=== PATIENT | female | born 1985 | race Caucasian/White ===

== ENCOUNTER → 2017-01-20 | Outpatient (CLI) | payer OTHER | LOC: FIMAGING 10:47 | PROVIDERS: ATTEND Obstetrics & Gynecology | DX: Z03.79 Encounter for other suspected maternal and fetal conditions ruled out (principal); Z3A.19 19 weeks gestation of pregnancy ==

== ENCOUNTER → 2017-02-14 | Outpatient (CLI) | payer OTHER | LOC: FIMAGING 13:42 | PROVIDERS: ATTEND Obstetrics & Gynecology | DX: Z34.82 Encounter for supervision of other normal pregnancy, second trimester (principal); Z3A.23 23 weeks gestation of pregnancy ==

== ENCOUNTER 2017-06-13 10:15 | Inpatient (IN) | payer OTHER ==
[2017-06-13] MEDS ORDERED: LIDOCAINE 1% 300 MG/30 ML SDV ONE (10:32)
[2017-06-13] MEDS ORDERED: AMMONIA AROMATIC 1 EACH AMP IH ONE (10:32)
[2017-06-13] MEDS ORDERED: TERBUTALINE SULFATE 1 MG/ML VIAL ONE (10:32)
[2017-06-13] MEDS ORDERED: OLIVE OIL 118 ML BTL ONE (10:32)
[2017-06-13] MEDS ORDERED: MISOPROSTOL 200 MCG TAB ONE (10:33)
[2017-06-13] MEDS ORDERED: OXYTOCIN 10 UNIT/ML VIAL ONE (10:33)
[2017-06-13] MEDS ORDERED: LR 1,000 ML IV PRN (10:34)
[2017-06-13] MEDS ORDERED: AMPICILLIN SODIUM 2 GM in NS 100 ML IV ONE (10:34)
[2017-06-13] MEDS ORDERED: TERBUTALINE SULFATE 1 MG/ML VIAL IV PRN (10:34)
[2017-06-13] MEDS ORDERED: EPSOM SALT 454 GM TP PRN (10:34)
[2017-06-13] MEDS ORDERED: OLIVE OIL 118 ML BTL MISC PRN (10:34)
[2017-06-13] MEDS ORDERED: OXYTOCIN/RINGERS LACTATE 1,000 ML IV PRN (10:34)
[2017-06-13] MEDS ORDERED: SIMETHICONE 80 MG TAB CHEW PO PRN (11:34)
[2017-06-13] MEDS ORDERED: HYDROCODONE/APAP 5/325 TAB PO PRN (11:34)
[2017-06-13] MEDS ORDERED: ACETAMINOPHEN 325 MG TAB PO PRN (11:34)
[2017-06-13] MEDS ORDERED: HYDROCORTISONE 0.5% CREAM TP PRN (11:34)
[2017-06-13] MEDS ORDERED: DOCUSATE SODIUM 100 MG CAP PO PRN (11:34)
--- NOTE | 2017-06-13 11:39 | OBDEL ---
Info Type: Vaginal GBS+: Yes Antibiotic Used for + GBS: Ampicillin Number of Antibiotic Doses Given: 1 Indications for Delivery: Spontaneous Labor Vaginal Delivery - Labor and Delivery Onset of Contractions Date: 06/13/17 Onset of Contractions Time: 06:00 Onset of Contractions Type: Spontaneous Rupture of Membranes Date: 06/13/17 Rupture of Membranes Time: 10:50 Rupture of Membranes Type: Spontaneous Amniotic Fluid Color: Clear Dilation Complete Date: 06/13/17 Dilation Complete Time: 10:50 Placenta Delivery Date: 06/13/17 Placenta Delivery Time: 11:11 Total Hours of Labor: 5 Laceration: 1st Degree Repair: 3-0, Vicryl Vaginal Sponge Count Correct: Yes Vaginal Needle Count Correct: Yes Vaginal Sweep Performed: Yes EBL: 250 cc Delivery Events: Nuchal Cord ( x 2) Delivery Comment: Patient progressed quickly from 7cm on admission to delivery. She delivered in squatting position - baby's head delivered, a nuchal cord was noted and reduced , then baby delivered through another loose nuchal cord. Baby was handed to mom , and mother was then positioned on the labor bed. Cord clamped x 2 and cut after 2 minutes of delayed cord clamping. Delivery nurse was in attendance since delivery. Baby taken to the warmer. Cord blood obtained, placenta delivered intact and uterus massaged. A few clots cleared from the ELISE, and pitocin given IV 20U/1L. Good uterine tone, cervix and vaginal hartman intact. Small midline 1st degree repaired with a running locked stitch and hemostatic. Baby in stable and good condition. - Medications Labor Augmentation/Induction Methods Used: None Data [facility] Delivery Date: 06/13/17 Delivery Time: 11:03 PRISCA: 06/10/17 Gestational Age: 40 week(s) and 3 day(s) Sex of Infant: Female Score (1 Min): 7 Score (5 Min): 8 ICD10 Worksheet Patient Problems: Problems Problem Status Onset (spontaneous vaginal delivery) Acute - ICD10 Problem Qualifiers (1) (spontaneous vaginal delivery)
[2017-06-13 11:50] LABS: % IMMATURE GRANULYOCYTES 0.2 % (0.0-1.1); ABSOLUTE IMMATURE GRANULOCYTES 0.02 10^3/uL (0.00-0.10); ADD DIFF? NO; ADD MORPH? NO; ADD SCAN? NO; ATYPICAL LYMPHOCYTE FLAG 10 (0-99); FRAGMENT RBC FLAG 0 (0-99); HEMATOCRIT 43.4 % (38.0-47.0); HEMOGLOBIN 15.6 g/dL (12.6-16.3); LEFT SHIFT FLG 0 (0-99); LIPEMIA HEMOLYSIS FLAG 90 (0-99); MEAN CELL HEMOGLOBIN 33.6 pg (27.9-34.1); MEAN CELL HEMOGLOBIN CONCENTR. 35.9 g/dL (32.4-36.7); MEAN CELL VOLUME 93.5 fL (81.5-99.8); MEAN PLATELET VOLUME 11.7 fL (8.7-11.7); PLATELET CLUMPS FLAG 0 (0-99); PLATELET COUNT 156 10^3/uL (150-400); RED BLOOD CELL COUNT 4.64 10^6/uL (4.18-5.33); RED CELL DISTRIBUTION WIDTH 12.9 % (11.5-15.2)
[2017-06-13] MEDS: IBUPROFEN 600 MG TAB PO PRN ×2 (12:33→19:53)
[2017-06-13 15:09] VITALS: RESP 16
[2017-06-13] MEDS: AMPICILLIN SODIUM 1 GM in NS 100 ML IV SCH ×2 (18:00→21:58)
--- NOTE | 2017-06-13 18:39 | GHP ---
[f rep st] HISTORY AND PHYSICAL DATE OF ADMISSION: 06/13/2017 CHIEF COMPLAINT: Painful contractions. HISTORY OF PRESENT ILLNESS: The patient is a 31-year-old, 3, para 2, female at 40 weeks and 3 days' estimated gestational age, who presents with report of painful contractions starting this m orning at 6 a.m. She called our clinic when they became 3 minutes apart and was advised to come to labor and delivery. Upon arrival to labor and delivery, she was 7 cm dilated. She denied any leaka ge of fluid or vaginal bleeding and reported good movement. She is GBS positive and was immed iately started on ampicillin for GBS prophylaxis. She declined any interventions for pain and was b reathing well through her contractions. course significant for being GBS positive. She received a Tdap vaccine and declined the fl u vaccine. She declined all genetic screening. LABORATORY DATA: Her labs were as follows: Blood type A positive, antibody screen negativ e. Hematocrit 40, rubella immune, RPR nonreactive, urine culture negative, hepatitis B surface anti gen negative, HIV negative, 1-hour GTT 81, hematocrit 36 at 28 weeks, and GBS positive. OB HISTORY: Spontaneous vaginal delivery x2 in 2009 and 2011. Largest baby was 8 pounds 3 ounces. PAST MEDICAL HISTORY: None. PAST SURGICAL HISTORY: None. ALLERGIES: Sulfa. OBJECTIVE: VITAL SIGNS: Blood pressure 129/75, heart rate 71, temp 36.9 degrees Celsius. he art rate tracing 130s with accelerations and no decelerations and excellent moderate variability. T ocometer contractions every 2-3 minutes. GENERAL: No acute distress. Well-developed, well-nourish ed female. CHEST: Clear to auscultation bilaterally. CARDIOVASCULAR: Regular rate and rhythm. A BDOMEN: Gravid and nontender. PELVIC: Cervix 7 cm dilated, 90% effaced with a bulging bag of wate r. ASSESSMENT: Patient is a 31-year-old, 3, para 2, female at 40 weeks and 3 days' estimated g estational age in active labor. PLAN: 1. Admit to labor and delivery. 2. status reassuring. 3. Labor-spontaneous. Patient is in active labor now. We will augment as needed. We will hold on rupturing her membranes since she is GBS positive. 4. GBS positive. Ampicillin initiated upon admission for GBS prophylaxis. /[id number]/MODL
[2017-06-14] MEDS: AMPICILLIN SODIUM 1 GM in NS 100 ML IV SCH ×3 (01:05→07:14)
[2017-06-14 01:26] VITALS: BP 98/62; PULSE 55; TEMP 99.5
[2017-06-14] MEDS: IBUPROFEN 600 MG TAB PO PRN (07:36)
--- NOTE | 2017-06-14 08:45 | OBPP ---
Progress Note Assessment/Plan: Assessment: 31 y/o female PPD#1 s/p - doing well, desires to be discharged. Lochia diminishing, breast feeding progressing Plan: 1) Discharge home 2) F/U in 6 weeks. Bleeding/pain/fever precautions reviewed. 06/14/17 08:44 Subjective: no complaints, feeling well, desires to go home. Objective: 06/13/17 10:30 Patient ABO/Rh A POSITIVE 06/13/17 10:30 Temp Pulse Resp BP Pulse Ox 37.5 C 55 L 16 98/62 L 06/13/17 20:45 06/13/17 20:45 06/13/17 20:45 06/13/17 20:45 Uterine Position/Fundal Height: Umbilicus -1 Uterine Tone: Firm
--- NOTE | 2017-06-14 08:47 | OBGCSDC ---
General Delivery Information - General Info : 3 Para: 3 Delivery Physician/CNM: Rosa Flowers Admission Date: 06/13/17 Labs: Patient ABO/Rh A POSITIVE 06/13/17 10:30 Hct 43.4 % (38.0-47.0) 06/13/17 10:30 Vaginal - Diagnosis Labor: Spontaneous Rupture of Membranes Type: Spontaneous Amniotic Fluid Color: Clear Laceration: 1st Degree Repair: 3-0, Vicryl Delivery Events: Nuchal Cord ( x 2) - Operations/Procedures L&D Analgesia/Anesthesia Type: Local - Hospital Course Antepartum: uncomplicated Intrapartum: uncomplicated : precipitous delivery, s/p one dose of ABX for GBS+ status prior to delivery, double nuchal cord at delivery - Delivery L&D Analgesia/Anesthesia Type: Local [place] Data [facility] Delivery Date: 06/13/17 Delivery Time: 11:03 PRISCA: 06/10/17 Gestational Age: 40 week(s) and 4 day(s) Sex of Infant: Female Weight (gm): 3670 g Score (1 Min): 7 Score (5 Min): 8 Discharge Information - Discharge Information Discharge Medications: Ibuprofen Condition: Good Instruction/Follow Up: Four Weeks (w/ therapist), Six Weeks (with Dr Flowers) Discharge Physician/CNM: Rosa Flowers
== END 2017-06-14 11:50 | disposition home or self-care (01) | DRG 775 ==
LOC: FLD 10:15 → FOB 20:40
PROVIDERS: ADMIT Obstetrics & Gynecology; ATTEND Obstetrics & Gynecology
PROC: 0HQ9XZZ Repair Perineum Skin, External Approach (ICD-10-PCS; principal; 2017-06-13)
PROC: 10E0XZZ Delivery of Products of Conception, External Approach (ICD-10-PCS; principal; 2017-06-13)
DX: O99.824 Streptococcus B carrier state complicating childbirth (principal); Z37.0 Single live birth; Z3A.40 40 weeks gestation of pregnancy; O69.82X0 Labor and delivery complicated by other cord entanglement, without compression, not applicable or unspecified; O70.0 First degree perineal laceration during delivery
CPT/HCPCS: J0290; J3105